=== PATIENT | male | born 1955 | race Caucasian/White ===

== ENCOUNTER 2018-10-16 11:01 | Day surgery (SDC) | payer OTHER, SELFPAY ==
[2018-10-16] VITALS (7 sets, daily range): BP systolic 113–133; BP diastolic 73–83; PULSE 73–98; RESP 12–16; TEMP 36.3–36.9; O2SAT 94–96; BMI 28.3
--- NOTE | 2018-10-16 | PATH_ITS ---
[facility] Accession Number: [id number] . 01 Material submitted: . colon - SIGMOID COLON POLYP . 02 Diagnosis: Sigmoid Colon Polyp: Tubular adenoma; negative for high-grade dysplasia. [facility]/10/17/2018 . 02 Electronically signed: . Carlita Campuzano MD, Pathologist NPI- [id number] . 01 Gross description: . SIGMOID COLON POLYP: Received in formalin are 2 fragment(s) of espinoza, soft tissue measuring 0.1 x 0.1 x 0.1 cm to 0.3 x 0.3 x 0.3 cm which is entirely submitted and submitted entirely in 1 cassette(s) /DMC /DMC . 02 Pathologist provided ICD-10: K63.5 . 02 CPT . 495121 Performed at: 01 [facility] [address] [id number] MD Surya Bernal MD Phone: [phone] Performed at: 02 [facility] [address] [place], [place] [id number] MD Albania Purdy MD Phone: [phone]
[2018-10-16] MEDS: SODIUM CHLORIDE 0.9% 1,000 ML 200 ML IV (12:00)
--- NOTE | 2018-10-16 13:04 | PM.HP.1 ---
History of Present Illness Chief complaint: [id number] COLONOSCOPY W/POSS BX Patient History Surgical History History of carpal tunnel repair Status post colonoscopy Status post colonoscopy Family History (Updated 07/03/16 @ 00:00 by Conversion Provider) Father Cancer Mother Heart disease Hypertension High cholesterol Family & Social History Family History Father Cancer Mother Heart disease Hypertension High cholesterol Meds Home Medications Medication Instructions Recorded Confirmed Type aspirin DAILY #0 07/04/16 History lisinopril [Prinivil] QDAY #0 07/04/16 History Allergies Allergy/AdvReac Type Severity Reaction Status Date / Time sulfamethoxazole Allergy Intermediate Rash Verified 10/16/18 11:37 [From ] trimethoprim [From JANRA] Allergy Intermediate Rash Verified 10/16/18 11:37 Review of Systems Review of Systems All systems reviewed & are unremarkable except as noted in HPI and below Exam Vital Signs (past 8 hours): - 10/16/18 11:39 Temperature 98.2 F Pulse Rate 98 H Respiratory Rate 16 Blood Pressure 133/80 Pulse Oximetry 95 Oxygen Delivery Method Room Air Narrative Exam Narrative: Awake alert and oriented x3, pupils reactive, heart regular rate rhythm, lungs clear, abdomen nondistended, no lower extremity swelling Assessment & Plan Assessment & Plan narrative: Colon cancer screening, colonoscopy
[2018-10-16] MEDS: MIDAZOLAM 5 MG/5 ML VIAL IV (13:29)
[2018-10-16] MEDS: fentaNYL 250 MCG/5 ML INJ IV (13:30)
--- NOTE | 2018-10-16 13:39 | PM.PREOP ---
Pre-operative Note Interval Note History & Physical reviewed/Exam performed by Physician: Yes Changes to H&P: No ASA Class (for procedural sedation): II
--- NOTE | 2018-10-16 13:40 | PM.OP.ENDO ---
Operative Date/Time/Diagnoses Date of procedure: 10/16/18 Procedure & Clinicians Study performed: Colonoscopy with cold biopsy Moderate conscious sedation was administered by the endoscopy nurse and supervised by the endoscopist. The following parameters were monitored: Oxygen saturation, heart rate, blood pressure, and response to care. Sedation: 4 mg midazolam, 100 micro g fentanyl Indications: Personal history of colon polyps. Last colonoscopy was 3 years ago Procedure Notes Procedure in detail: Prior to the procedure, history and physical was performed, and patient medications and allergies were reviewed. Preprocedure nursing history and assessment was reviewed. Patient identification and proposed procedure were verified by the physician and nurse in the procedure room. The physical status of the patient was reassessed after the procedure. After informed consent was obtained including risks, benefits, and alternatives, the scope was passed under direct vision. Throughout the procedure, the patient's blood pressure, pulse, and oxygen saturations were monitored continuously. The colonoscope was introduced through the anus and advanced to the cecum as identified by the appendiceal orifice and ileocecal valve. The patient tolerated the procedure well. Bowel prep was deemed adequate to detect polyps greater than 5 mm. HAO and perianal examinations were unremarkable. Retroflexion in the rectum revealed grade 2 internal hemorrhoids. Multiple medium mouth diverticula noted in the sigmoid colon A 3 mm sessile polyp in the sigmoid colon was resected and retrieved with a Jumbo biopsy forceps Impression: Internal hemorrhoids Sigmoid colon diverticulosis 3 mm sigmoid colon polyp removed Sedation minutes: 16 Complications: other (EBL minimal. No complications) Plan for aftercare: Follow-up pathology results Repeat colonoscopy in 5 years for screening purposes High fiber diet Resume home medications Discharge home with escort
== END 2018-10-16 14:19 | disposition home or self-care (01) ==
PROVIDERS: PCP Nurse Practitioner Family; Visit Provider Internal Medicine
PROC: 0DJD8ZZ Inspection of Lower Intestinal Tract, Via Natural or Artificial Opening Endoscopic (ICD-10-PCS; CPT 45378; principal; 2018-10-16 13:00)
DX: Z86.010 Personal history of colon polyps (principal); K57.30 Diverticulosis of large intestine without perforation or abscess without bleeding; K64.1 Second degree hemorrhoids; D12.5 Benign neoplasm of sigmoid colon
CPT/HCPCS: 45380; 88305; J2250; J3010

== ENCOUNTER 2019-01-21 09:04 | Emergency (ER) | payer OTHER, SELFPAY ==
--- NOTE | 2019-01-21 09:11 | ED.MALEGU ---
HPI - Male Genitourinary General Chief complaint: Urogenital-Male Stated complaint: KIDNEY STONE Time Seen by Provider: 01/21/19 09:05 Source: patient Mode of arrival: ambulatory Limitations: no limitations History of Present Illness HPI Narrative: Patient is a 63-year-old male here for evaluation of what he thinks is a right-sided kidney stone. He has had multiple stones in the past. Has had to have lithotripsy in the past. He states that he does not currently see a urologist on a regular basis. He has passed multiple stones in the past several weeks. He states that his current symptoms started approximately 5 days ago. Is on his right side. He states that he is in here today for both pain control and the fact that the pain has not moved from his lower back in the past 5 days which he states is abnormal from his baseline kidney stone discomfort. Not having any vomiting. No fevers. Is urinating but does notice some decreased urine output. Related Data Home Medications Medication Instructions Recorded Confirmed aspirin DAILY #0 07/04/16 lisinopril [Prinivil] QDAY #0 07/04/16 Previous Rx's Medication Instructions Recorded hydrocodone-acetaminophen [Everson] 1 tab PO Q4-6H PRN #20 tab 01/21/19 Allergies Allergy/AdvReac Type Severity Reaction Status Date / Time sulfamethoxazole Allergy Intermediate Rash Verified 10/16/18 11:37 [From ] trimethoprim [From ] Allergy Intermediate Rash Verified 10/16/18 11:37 Review of Systems Constitutional Constitutional: Denies fever(s) Cardiovascular Cardiovascular: Denies chest pain and Denies dyspnea Respiratory Respiratory: Denies dyspnea Gastrointestinal Gastrointestinal: Denies abdominal pain Genitourinary Genitourinary: Denies hematuria, Denies dysuria, Denies testicular mass, Denies testicular pain, Reports urinary frequency and Reports urinary hesitancy Musculoskeletal Musculoskeletal: Reports back pain Integumentary/Breasts Skin/Breast: Denies rash Neurologic Neurologic: Denies behavioral changes Psychiatric Psychiatric: Denies behavioral changes [facility] Medical History Multiple kidney stones (Acute) Surgical History H/O lithotripsy (Acute) History of carpal tunnel repair Status post colonoscopy Status post colonoscopy Family History Father Cancer Mother Heart disease Hypertension High cholesterol Social History lives independently: Yes Exam Initial Vital Signs Initial Vital Signs: Vital Signs Temperature 97.8 F 01/21/19 09:14 Pulse Rate 78 01/21/19 09:14 Respiratory Rate 13 01/21/19 09:14 Blood Pressure 164/80 H 01/21/19 09:14 Pulse Oximetry 98 01/21/19 09:14 Const General: cooperative, healthy appearing, comfortable, well developed, well groomed and No acute distress Orientation: alert, awake and oriented x3 HENMT Head: normal to inspection and normocephalic Resp Effort & Inspection: normal respiratory effort Auscultation: clear to auscultation bilaterally Cardio Rate: regular rate Rhythm: regular rhythm GI Inspection: non-distended Palpation: soft, No firm and No tender Back/Spine/Pelvis Back: No CVA tenderness Skin Lesions: no lesions Rashes: no rashes Neuro General: alert and awake Cognition: normal cognition Speech: speech normal Extrem General: normal to inspection and capillary refill normal Psych Appearance: grossly normal and well kempt Course Orders Ordered: ED Orders 01/21/19 09:15 Basic Metabolic Panel Stat Complete Blood Count AUTO DIFF Stat 01/21/19 09:18 CT kidney ureter bladder (KUB) Stat 01/21/19 09:35 Urine Microscopic Stat Discontinued Medications Acetaminophen (Tylenol) 650 mg PO NOW ONE Stop: 01/21/19 09:18 Last Admin: 01/21/19 09:26 Dose: 650 mg Documented by: PAUL Lidocaine HCl 7.7 ml/ Sodium (Chloride) 57.7 mls @ 346.2 mls/hr IV NOW ONE Stop: 01/21/19 09:18 Last Infusion: 01/21/19 09:50 Dose: 0 mls/hr Documented by: Admin: 01/21/19 09:35 Dose: 346.2 mls/hr Documented by: PAUL Ketorolac Tromethamine (Toradol) 30 mg IV NOW ONE Stop: 01/21/19 09:18 Last Admin: 01/21/19 09:26 Dose: 30 mg Documented by: PAUL Vital Signs Vital signs: Vital Signs - 8 hr 09/03/19 09:14 Temperature 97.8 F Pulse Rate 78 Respiratory Rate 13 Blood Pressure 164/80 H Pulse Oximetry 98 MDM - Male Genitourinary Lab Data Attestation: I reviewed the patient's lab results. Result diagrams: 01/21/19 09:15 01/21/19 09:15 Labs: Lab Results 01/21/19 01/21/19 01/21/19 Range/Units 09:15 09:15 09:35 WBC 9.0 (4.5-11.0) X10^3/uL RBC 5.00 (4.5-5.9) X10^6/uL Hgb 15.9 (13.5-17.5) g/dL Hct 45.1 (41-53) % MCV 90.1 (80-100) fL MCH 31.8 (26-34) PG MCHC 35.3 (30-36) % RDW 13.9 (11.6-14.8) % Plt Count 216 (150-400) X10^3/uL Neut % (Auto) 73.1 (50-75) % Lymph % (Auto) 18.8 L (25-40) % Sharp % (Auto) 7.0 (3-14) % Eos % (Auto) 0.5 L (2-4) % Baso % (Auto) 0.6 (0-2) % Neut # (Auto) 6500 (6820-3409) /uL Lymph # (Auto) 1700 (1534-9028) /uL Sharp # (Auto) 600 (0-900) /uL Eos # (Auto) 0 (0-450) /uL Baso # (Auto) 100 (0-100) /uL Sodium 139 (137-145) mmol/L Potassium 4.0 (3.4-5.1) mmol/L Chloride 104 (98-107) mmol/L Carbon Dioxide 26 (22-32) mmol/L BUN 13 (9-20) mg/dL Creatinine 0.50 L (0.66-1.25) mg/dL Estimated GFR > 60.0 (>60) mL/min BUN/Creatinine Ratio 26.0 H (6-22) Glucose 130 H (80-110) mg/dL Calcium 9.2 (8.4-10.2) mg/dL Urine RBC 0-1/hpf (0-5/HPF) Urine WBC 0-1/hpf (0-5/HPF) Ur Squamous Epith Cells 0-1 /hpf (0-5/HPF) Calcium Oxalate Crystal Occasional H Urine Bacteria Few (2-10) H (None) Ur Culture Indicated? Cult not indicated Urine Dip Bedside Urine Glucose Negative Bedside Urine Bilirubin - Negative Bedside Urine Ketone - Negative Urine Specific [place] 1.015 Bedside Urine Occult Blood - Negative Bedside Urine pH 6.0 Bedside Urine Protein +/- 15 Bedside Urine Urobilinogen 1+ 2mg Bedside Urine Nitrite - Negative Bedside Urine Leukocytes - Negative Esterase Imaging Data CT scan - abdomen: Radiologist's impression: [address] [address] [address] Scan Report Signed Patient: Milton Mendez JMR#: [id number] : 5Acct:[id number] Age/Sex: 63 / MDate of Service: 01/21/19 Loc: ED Accession Number: [id number] Procedure: CT kidney ureter bladder (KUB) Ordering Provider: Sanford Callahan D.O. PROCEDURE: CT KIDNEY URETER BLADDER (KUB) INDICATIONS: Eval for right-sided stone, right flank pain TECHNIQUE: Noncontrast 5 mm thick sections acquired from the diaphragms to the symphysis. 5 mm thick coronal and sagittal reformats were then performed. For radiation dose reduction, the following was used: automated exposure control, adjustment of mA and/or kV according to patient size. COMPARISON: Located Within [facility], , KUB XRAY (1 VIEW ABDOMEN), 10/13/2009, 13:03. FINDINGS: Image quality: Excellent. Lung bases: Lung bases are clear. Heart size is normal. Urinary system: Both kidneys are normal in size. No obstructive kidney stones are found but there are several 1-2 mm calculi within the collecting system of the kidneys. No hydronephrosis or perinephric fat stranding. Both ureters appear non-dilated throughout their expected courses. Bladder wall thickness is normal; but there is a 5 mm suspected calcified bladder stone seen exactly at the midline, centered on series 2 image 79.. Other solid organs: Liver is normal in size. Gallbladder appears normal. Pancreas is normal in contours. Spleen is normal in size. No adrenal nodules. Peritoneum and bowel: Unenhanced bowel loops demonstrate normal wall thickness and caliber. No free fluid or air. Nodes and vessels: No retroperitoneal or mesenteric adenopathy by size criteria. Aorta and inferior vena cava are normal in caliber. Abdominal wall: No ventral hernias. Pelvis: No free pelvic fluid. No inguinal hernias or adenopathy. Bones: No suspicious bony lesions. No vertebral body compression fractures. IMPRESSION: 1. Within the collecting system of the kidneys bilaterally there is a total of approximately 2-3 small collecting system calculi ranging in size from 1 mm to 2 mm. There is no sign of urinary tract obstruction as a result, however. 2. Within the exact midline of the bladder lumen there is a 5 mm calcification, separate from the ureteral insertions into the bladder more posteriorly. This appears to represent an intraluminal bladder calculus, chronicity uncertain. The absence of urinary tract dilatation or inflammation would argue that this does not represent a calculus that has just transit through the ureter of one of the kidneys into the bladder lumen. It may be a bladder calculus that is chronic, however. 3. Elsewhere through the abdomen and pelvis no acute disease is found or suspected. Dictated by: Alessio Ramirez M.D. on 01/21/2019 at 9:46 Approved by: Alessio Ramirez M.D. on 01/21/2019 at 9:51 MDM Narrative Medical decision making narrative: Patient reports improvement of symptoms after medications here in the emergency department. His creatinine is unremarkable. No signs urinary tract infection. CT scan does show multiple small ureteral stones with a larger bladder stone. I do suspect that these are the cause of his symptoms. I did discuss this with the patient. No indication for emergent urologic consultation. I have the patient contact his primary provider for follow-up to discuss the indications for to see urologist as an outpatient. He has nausea medication at home. He also has Flomax at home provided by his primary provider. Will send home with a short course of pain medication. He was given return precautions and follow-up instructions. He expressed understanding and agreement with plan. Discharge Plan Departure Patient Disposition: Home Clinical Impression: Renal colic on right side Instructions: DI for Kidney Stones Activity Restrictions/Additional Instructions: Take your medications as directed. Be sure to increase your fluid intake. Contact your primary provider to discuss the indications for referral to see a urologist. Return to the emergency department for any new or worsening symptoms Prescriptions: New hydrocodone-acetaminophen [Everson] 5-325 mg tablet 1 tab PO Q4-6H PRN (Reason: pain) Qty: 20 RF: 0 No Action lisinopril [Prinivil] 20 MG tablet QDAY Qty: 0 RF: 0 aspirin 81 MG tablet,chewable DAILY Qty: 0 RF: 0 Referrals: Aleida Taylor ARNP [Primary Care Provider] -
[2019-01-21 09:14] VITALS: BP 164/80; PULSE 78; RESP 13; TEMP 36.6; O2SAT 98
--- NOTE | 2019-01-21 09:18 | DI.CT.S_ITS ---
PROCEDURE: CT KIDNEY URETER BLADDER (KUB) INDICATIONS: Eval for right-sided stone, right flank pain TECHNIQUE: Noncontrast 5 mm thick sections acquired from the diaphragms to the symphysis. 5 mm thick coronal and sagittal reformats were then performed. For radiation dose reduction, the following was used: automated exposure control, adjustment of mA and/or kV according to patient size. COMPARISON: [facility], , KUB XRAY (1 VIEW ABDOMEN), 10/13/2009, 13:03. FINDINGS: Image quality: Excellent. Lung bases: Lung bases are clear. Heart size is normal. Urinary system: Both kidneys are normal in size. No obstructive kidney stones are found but there are several 1-2 mm calculi within the collecting system of the kidneys. No hydronephrosis or perinephric fat stranding. Both ureters appear non-dilated throughout their expected courses. Bladder wall thickness is normal; but there is a 5 mm suspected calcified bladder stone seen exactly at the midline, centered on series 2 image 79.. Other solid organs: Liver is normal in size. Gallbladder appears normal. Pancreas is normal in contours. Spleen is normal in size. No adrenal nodules. Peritoneum and bowel: Unenhanced bowel loops demonstrate normal wall thickness and caliber. No free fluid or air. Nodes and vessels: No retroperitoneal or mesenteric adenopathy by size criteria. Aorta and inferior vena cava are normal in caliber. Abdominal wall: No ventral hernias. Pelvis: No free pelvic fluid. No inguinal hernias or adenopathy. Bones: No suspicious bony lesions. No vertebral body compression fractures. IMPRESSION: 1. Within the collecting system of the kidneys bilaterally there is a total of approximately 2-3 small collecting system calculi ranging in size from 1 mm to 2 mm. There is no sign of urinary tract obstruction as a result, however. 2. Within the exact midline of the bladder lumen there is a 5 mm calcification, separate from the ureteral insertions into the bladder more posteriorly. This appears to represent an intraluminal bladder calculus, chronicity uncertain. The absence of urinary tract dilatation or inflammation would argue that this does not represent a calculus that has just transit through the ureter of one of the kidneys into the bladder lumen. It may be a bladder calculus that is chronic, however. 3. Elsewhere through the abdomen and pelvis no acute disease is found or suspected. Dictated by: Alessio Ramirez M.D. on 01/21/2019 at 9:46 Approved by: Alessio Ramirez M.D. on 01/21/2019 at 9:51
[2019-01-21 09:26] LABS: Add Manual Diff / Slide Review NO; Basophils Absolute Auto 100 /uL (0-100); Basophils Percent Auto 0.6 % (0-2); Eosinophils Absolute Auto 0 /uL (0-450); Eosinophils Percent Auto 0.5 % (2-4); Hematocrit 45.1 % (41-53); Hemoglobin 15.9 g/dL (13.5-17.5); Lymphocytes Absolute Auto 1700 /uL (1100-4500); Lymphocytes Percent Auto 18.8 % (25-40); Mean Corpuscular HGB Conc 35.3 % (30-36); Mean Corpuscular Hemoglobin 31.8 PG (26-34); Mean Corpuscular Volume 90.1 fL (80-100); Monocytes Absolute Auto 600 /uL (0-900); Neutrophils Absolute Auto 6500 /uL (1500-7000); Neutrophils Percent Auto 73.1 % (50-75); Platelet Count 216 X10^3/uL (150-400); Red Cell Distribution Width 13.9 % (11.6-14.8)
[2019-01-21] MEDS: KETOROLAC 60 MG/2 ML VIAL 30 MG IV (09:26)
[2019-01-21] MEDS: ACETAMINOPHEN 325 MG TABLET 650 MG PO (09:26)
[2019-01-21] MEDS: LIDOCAINE 2% IV (09:35)
[2019-01-21] MEDS: SODIUM CHLORIDE 0.9% IV (09:35)
[2019-01-21 09:36] LABS: Blood Urea Nitrogen 13 mg/dL (9-20); Calcium 9.2 mg/dL (8.4-10.2); Carbon Dioxide 26 mmol/L (22-32); Chloride 104 mmol/L (98-107); Estimated Glomerular Filt Rate > 60.0 mL/min (>60); Glucose 130 mg/dL (80-110); HEMOLYSIS 16 (0-50); Sodium 139 mmol/L (137-145)
[2019-01-21 09:53] LABS: RBC Urine 0-1/HPF (0-5/HPF); Squamous Epithelial Cell Urine 0-1 /HPF (0-5/HPF); WBC Urine 0-1/HPF (0-5/HPF)
[2019-01-21 09:54] LABS: Bacteria Urine Few (2-10); Calcium Oxalate Crystals Urine Occasional; Culture Indicated Urine Cult Not Indicated
--- NOTE | 2019-01-21 10:48 | PC.NURSE ---
pt c/o left flank pain started 2 days ago. states has long history of kidney stones, todays pain is worse, it's not moving, and the kidney stones have been more frequent.
[2019-01-21 10:49] VITALS: BP 159/81; PULSE 67; RESP 18; O2SAT 100
== END 2019-01-21 10:50 | disposition home or self-care (01) ==
PROVIDERS: Emergency Provider Emergency Medicine; PCP Nurse Practitioner Family
DX: N23 Unspecified renal colic (principal)
CPT/HCPCS: 36591; 74176; 80048; 81003; 81015; 85025; 96374; 96375; 99283; 99284; J1885

== ENCOUNTER → 2019-02-17 09:25 | Outpatient (CLI) | payer OTHER, SELFPAY ==
--- NOTE | 2019-02-17 | DI.ECHO.S_ITS ---
[facility] +---------+ : : [address] [place] : : : : [id number] : : : : Phone: [phone]---------+ Echocardiogram Report + + :Name: SHIKHA LEONARDO Study Date: 02/17/2019 Height: 73 in : :[facility] Weight: 229 lb : : Gender: Male BSA: 2.3 m2 : :: 1955 Age: 63 yrs BP: 118/58 mmHg: :Reason For Study: Abnormal ECG : : Performed By: Afau Spencer : :Referring: ARPITA JUNIOR : + + Interpretation Summary The left ventricle is normal in size. The ejection fraction is estimated to be 60-65%. There has been no significant change in LV EF since the previous study. There is apical akinesis. There is apical septal wall akinesis. Wall motion abnormalities are new. The aortic valve is mildly calcified. The aortic valve is trileaflet. There is mildly reduced leaflet mobility. The peak aortic velocity is 2.5 m/sec. The peak aortic velocity on the previous exam was 2.0 m/sec. The calculated aortic valve area is 1.6 cm2. There is mild aortic stenosis. The ascending aorta is mild-moderately enlarged. 4.2 cm in diameter. There has been no significant change since the previous study. Procedure: A two-dimensional transthoracic echocardiogram with color flow and Doppler was performed. The study quality was technically adequate. Comparison is made with the echocardiogram of 07-12-17. The heart rate ranged between 95-104 bpm during the study. The patient was in normal sinus rhythm during the exam. Left Ventricle: The left ventricle is normal in size. There is normal left ventricular wall thickness. There is no thrombus. The ejection fraction is estimated to be 60-65%. There has been no significant change since the previous study. There is apical septal wall akinesis. There is apical akinesis. MV E/A: 0.68 Med Peak E' Jovan: 5.5 cm/sec E/E' med: 17.9. Right Ventricle: The right ventricle grossly appears normal in size with probable normal systolic function. Atria: The left atrial size is normal. Both atria have remained unchanged in size since the prior echo exam. Right atrial size is normal. A prominent eustachian valve is noted. The interatrial septum is intact with no evidence for an atrial septal defect. Mitral Valve: The mitral valve leaflets appear mildly thickened, but open well. There is mild mitral annular calcification. There is trace mitral regurgitation. Aortic Valve: The aortic valve is mildly calcified. The aortic valve is trileaflet. There is mildly reduced leaflet mobility. The calculated aortic valve area is 1.6 cm2. The peak aortic velocity is 2.5 m/sec. The peak aortic velocity on the previous exam was 2.0 m/sec. The aortic valve mean gradient is 13 mmHg. Severity ratio is 0.42. There is mild aortic stenosis. There is trace aortic regurgitation. Tricuspid Valve: The tricuspid valve leaflets are thin and pliable. There is trace tricuspid regurgitation. The right ventricular systolic pressure is estimated to be at least 19 mmHg based on an estimated right atrial pressure of 3 mm Hg. Pulmonic Valve: The pulmonic valve is not well seen, but is grossly normal. There is no pulmonic valvular regurgitation. Great Vessels: The aortic root is mildly dilated. The ascending aorta is mild-moderately enlarged. There has been no significant change since the previous study. This is unchanged compared to the previous study. The IVC is of normal diameter and collapses greater than 50% with a sniff. This suggests a low right atrial pressure of 3 mm Hg. Pericardium/ Pleura There is no pericardial effusion. There is no pleural effusion. MMode/2D Measurements & Calculations LVIDd: 4.1 cm LVOT diam: 2.2 cm LVIDs: 3.0 cm Ao root diam: 3.9 cm FS: 28.1 % Aortic Jxn: 3.2 cm EPSS: 0.66 cm asc Aorta Diam: 4.2 cm IVSd: 0.98 cm LVPWd: 0.95 cm LV hernandez. diameter/BSA (cm/m^2): 1.8 LV sys. diameter/BSA (cm/m^2): 1.3 LA dimension: 3.8 cm RA long axis: 4.8 cm LA A2 area: 20.4 cm2 RA area: 15.1 cm2 LA A4 area: 18.6 cm2 RA vol: 39.8 ml LA length (vol): 5.1 cm RA : 17.5 ml/m2 LA vol: 63.8 ml IVC diam: 1.00 cm LA vol index: 28.0 ml/m2 RVDd major: 5.4 cm RVD1 (basal): 3.4 cm RVD2 (mid): 2.8 cm Doppler Measurements & Calculations Ao V2 max: 247.2 cm/sec LVOT Max Jovan: 101.2 cm/sec Ao V2 mean: 173.2 cm/sec LV V1 max P.1 mmHg Ao max P.4 mmHg LV V1 VTI: 18.7 cm Ao mean P.2 mmHg JAYNE(I,D): 1.6 cm2 Ao V2 VTI: 45.1 cm JAYNE(V,D): 1.6 cm2 sev ratio: 0.42 JAYNE indexed to BSA (cm^2/m^2): 0.72 MV E max jovan: 97.9 cm/sec TR max jovan: 197.0 cm/sec MV A max jovan: 144.5 cm/sec TR max P.5 mmHg MV E/A: 0.68 PA V2 max: 130.5 cm/sec Med Peak E' Jovan: 5.5 cm/sec PA V2 mean: 98.2 cm/sec E/E' med: 17.9 PA mean P.2 mmHg Lat Peak E' Jovan: 9.6 cm/sec PA Accel Time: 0.15 sec E/E' lat: 10.2 E/e' average: 14.1 MV dec time: 0.31 sec MV P1/2t: 89.6 msec MV P1/2t max jovan: 97.4 cm/sec SV(LVOT): 74.0 ml MVA(P1/2t): 2.5 cm2 Reading Physician:06:07 PM
--- NOTE | 2019-02-17 | DI.NM.S_ITS ---
PROCEDURE: NM STEPAN PERF SPECT REST & STR Rest and exercise myocardial perfusion SPECT with gated imaging and ejection fraction RADIOPHARMACEUTICAL: 12.4 mCi Tc-99m sestamibi IV at rest and 26.2 mCi Tc-99m sestamibi IV at peak exercise. A one day-protocol was performed. INDICATIONS: Abnormal electrocardiogram [ECG] [EKG] TECHNIQUE: Radiopharmaceutical was injected at peak stress test, and also at rest. SPECT images were obtained. SPECT myocardial perfusion images were displayed in short axis, horizontal long axis, and vertical long axis views. Gated images were reviewed using INXPO software. COMPARISON: None. CARDIAC STRESS: A standard Louie treadmill exercise tolerance test was performed by the patient under the supervision of an attending staff. The patient exercised for 5 minutes and 15 seconds; functional aerobic impairment (BAMBI) is +28%. Hemodynamic data: There is an exagerated heart rate response to exercise stress. Patient achieved 115% of maximum predicted heart rate at peak exercise. Borderline hypertensive response to exercise (rest BP 112/70, max BP 200/84mmHg). Symptoms: Patient denied chest pain during exercise. Significant dyspnea with exercise. EKG: Resting EKG shows sinus rhythm with Q waves in V1-V3 and mild ST depressions diffusely. With exercise, there were 1-2mm horizontal to downsloping ST changes in the inferior and anterolateral leads. FINDINGS: Raw data: There is good myocardial labeling by radiotracer. No significant motion artifacts. Vrgb-ui-fflea ratio is 0.37 (normal is less than 0.38 for sestamibi tracer, and less than 0.50 for thallium tracer). Left ventricle function: Gated images akinesis of the entire apical cap extending to the distal septum. No transient ischemic dilation; TID is 1.07 (normal less than 1.3). The left ventricle resting end-diastolic volume is 162 mL. Left ventricle stress ejection fraction is 64%; normal values are above 45%. Myocardial perfusion: There is large fixed defect at the apical cap with reversible defect in the distal anterior wall consistent with prior apical infarct and significant ischemia in the distal anterior wall. SSS 23, SRS 16. Prone images confim that the perfusion defects are true defects. IMPRESSION: Abnormal treadmill nuclear stress test consistent with large apical infarct and significant ischemia in the distal anterior wall. 1) There is large fixed defect at the apical cap with reversible defect in the distal anterior wall consistent with prior apical infarct and significant ischemia in the distal anterior wall. SSS 23, SRS 16. Prone images confim that the perfusion defects are true defects. 2) Enlarged left ventricle with normal systolic function (EF post stress 64%). The entire apical cap extending to the distal septum are akinetic. 3) ECG suggestive of ischemia and prior anteroseptal infarct. Resting EKG shows sinus rhythm with Q waves in V1-V3 and mild ST depressions diffusely. With exercise, there were 1-2mm horizontal to downsloping ST changes in the inferior and anterolateral leads. 4) Significant dyspnea with exercise. No chest pain during the study. 5) Reduced exercise tolerance (7.0 METs, BAMBI +28%). Target heart rate achieved. Exagerated heart rate response to exercise stress as 115% of maximum predicted heart rate reached. 6) Borderline hypertensive response to exercise (rest BP 112/70, max BP 200/84mmHg). 7) No prior nuclear stress test available for comparison. Dictated by: Teena Kevin MD on 02/17/2019 at 16:50 Approved by: Teena Kevin MD on 02/17/2019 at 16:58
--- NOTE | 2019-02-17 14:45 | PM.TREADMILL ---
Cardiac Stress Test Report Referral & Results Date Patient Seen: 02/17/19 Requesting provider: Raul Yates Indication: Abnormal ECG Rest ECG: Poor R-wave progression Procedure Note: Today following both written and verbal informed consent the patient was exercised according to a standard Louie protocol patient went for a total of 5 minutes 15 seconds achieving a maximum heart rate of 179 maximum systolic blood pressure of 200. This is approximately 7.0 METS. Exercise was terminated at this point because of severe dyspnea. Patient was also given Cardiolite through a previously started Hep-Lock IV by the diagnostic imaging staff approximately 1 minute prior to the cessation of exercise. Patient's oxygen saturation remained normal at 98% throughout With exercise his quickly tachycardic and quickly hypertensive With exercise patient developed up to bowel mm plus of downsloping ST segment depression in leads II, III, and aVf, as well as some altered ST segments in lead V6. These were all seen previously on prior stress test per Cardiology notes Functional aerobic impairment rates about 28% of the sedentary scale Impression: Ischemic changes as above Limited exercise capacity as above Quickly tachycardic and hypertensive as above Please see perfusion imaging report as well Please note: Actual ECG tracings can be found in the PACS system.
== END ==
PROVIDERS: PCP Nurse Practitioner Family; Visit Provider Internal Medicine Cardiovascular Disease
DX: I35.0 Nonrheumatic aortic (valve) stenosis (principal); R94.31 Abnormal electrocardiogram [ECG] [EKG]; I77.89 Other specified disorders of arteries and arterioles; R06.09 Other forms of dyspnea; R00.0 Tachycardia, unspecified; I10 Essential (primary) hypertension
CPT/HCPCS: 78452; 93016; 93017; 93018; 93306; A9502

== ENCOUNTER → 2020-12-27 12:13 | Outpatient (CLI) | payer MEDICARE, OTHER, SELFPAY ==
--- NOTE | 2020-12-27 | DI.ECHO.S_ITS ---
[place] [facility]---------+ [facility] +---------+ : : [address] : : : : [id number] : : : : Phone: [phone] : [phone]---------+ Echocardiogram Report + + :Name: SHIKHA LEONARDO Study Date: 12/27/2020 Height: 73 in : :[facility] : Weight: 238 lb : : Gender: Male BSA: 2.3 m2 : :: 1955 Age: 65 yrs BP: 154/84 mmHg: :Reason For Study: CAD : :Ordering Physician: Arpita : :Bernarda Junior Performed By: Twin Marie : :Referring: ARPITA JUNIOR : + + Interpretation Summary The left ventricle is normal in size and wall thickness. The ejection fraction is estimated to be 60-65%. The right ventricle is normal in size and function. The aortic valve is mildly calcified. There is mildly reduced leaflet mobility. There is no hemodynamically significant valvular aortic stenosis. There is mild to moderate aortic regurgitation. Compared to the prior echo study, there has been an increase in the severity of aortic regurgitation. The ascending aorta is mild-moderately enlarged. 4.2 cm in diameter. This is unchanged compared to the previous study. The IVC is of normal diameter and collapses greater than 50% with a sniff. This suggests a low right atrial pressure of 3 mm Hg. Procedure: A two-dimensional transthoracic echocardiogram with color flow and Doppler was performed. The study quality was technically adequate. Comparison is made with the echocardiogram of 02/17/2019. The patient was in normal sinus rhythm during the exam. Left Ventricle: The left ventricle is normal in size and wall thickness. There is no thrombus. Left ventricular systolic function is normal. The ejection fraction is estimated to be 60-65%. There is apical septal wall akinesis. There is apical akinesis. Compared to the prior exam, the left ventricular wall motion has not changed. MV E/A: 0.98 Med Peak E' Jovan: 6.6 cm/sec E/E' med: 18.7. Right Ventricle: The right ventricle is normal in size and function. Atria: Both atria are normal in size. There is no Doppler evidence for an interatrial shunt. Mitral Valve: There is mild mitral annular calcification. The mitral valve leaflets are mildly calcified. No significant mitral valve stenosis. There is trace mitral regurgitation. Aortic Valve: There is mild aortic valve sclerosis. The aortic valve is mildly calcified. There is mildly reduced leaflet mobility. There is no hemodynamically significant valvular aortic stenosis. The peak aortic velocity is 2.01 m/sec. The peak aortic velocity on the previous exam was 2.47 m/sec. There is mild to moderate aortic regurgitation. Compared to the prior echo study, there has been an increase in the severity of aortic regurgitation. Tricuspid Valve: The tricuspid valve is normal in structure and function. Pulmonary artery pressures cannot be estimated because of the lack of a measurable TR jet velocity but the IVC suggests a CVP of around 3 mmHg. There is trace tricuspid regurgitation. Pulmonic Valve: The pulmonic valve is not well visualized. There is no pulmonic valvular regurgitation. Great Vessels: The aortic root is normal size. The ascending aorta is mild- moderately enlarged. This is unchanged compared to the previous study. The IVC is of normal diameter and collapses greater than 50% with a sniff. This suggests a low right atrial pressure of 3 mm Hg. Pericardium/ Pleura There is no pericardial effusion. There is no pleural effusion. MMode/2D Measurements & Calculations LVIDd: 4.9 cm LVOT diam: 2.3 cm LVIDs: 3.3 cm Ao root diam: 3.5 cm FS: 32.7 % asc Aorta Diam: 4.2 cm IVSd: 1.0 cm LVPWd: 0.90 cm LV hernandez. diameter/BSA (cm/m^2): 2.1 LV sys. diameter/BSA (cm/m^2): 1.4 LA dimension: 3.2 cm RA long axis: 4.8 cm LA A2 area: 15.9 cm2 LA A4 area: 15.8 cm2 LA length (vol): 5.3 cm LA vol: 39.9 ml LA vol index: 17.2 ml/m2 LVLs ap4: 8.1 cm TAPSE_phl: 1.9 cm Doppler Measurements & Calculations Ao V2 max: 201.0 cm/sec LVOT Max Jovan: 134.0 cm/sec Ao V2 mean: 137.0 cm/sec LV V1 max P.2 mmHg Ao max P.0 mmHg LV V1 VTI: 30.1 cm Ao mean P.0 mmHg JAYNE(I,D): 3.2 cm2 Ao V2 VTI: 38.7 cm JAYNE(V,D): 2.8 cm2 sev ratio: 0.78 JAYNE indexed to BSA (cm^2/m^2): 1.4 AI P1/2t: 506.5 msec AI dec slope: 229.0 cm/sec2 MV E max jovan: 123.0 cm/sec PA V2 max: 109.0 cm/sec MV A max jovan: 125.0 cm/sec PA V2 mean: 85.1 cm/sec MV E/A: 0.98 PA mean P.0 mmHg Med Peak E' Jovan: 6.6 cm/sec PA pr(Accel): 45.7 mmHg E/E' med: 18.7 Lat Peak E' Jovan: 7.8 cm/sec E/E' lat: 15.7 E/e' average: 17.2 MV dec time: 0.28 sec SV(LVOT): 125.1 ml AV P1/2t-pr_phl: 506.0 msec AV VR_phl: 0.67 JAYNE(VTI)/BSA_phl: 1.4 MV P1/2t-pr_phl: 83.0 msec Reading Physician:05:45 PM
== END ==
PROVIDERS: PCP Family Medicine; Referring Provider Internal Medicine Cardiovascular Disease; Visit Provider Internal Medicine Cardiovascular Disease
DX: I35.1 Nonrheumatic aortic (valve) insufficiency (principal); I25.10 Atherosclerotic heart disease of native coronary artery without angina pectoris; I77.810 Thoracic aortic ectasia; Z95.5 Presence of coronary angioplasty implant and graft
CPT/HCPCS: 93306

== ENCOUNTER → 2021-04-13 13:17 | Outpatient (CLI) | payer OTHER, MEDICARE, SELFPAY ==
--- NOTE | 2021-04-13 | DI.ECHO.S_ITS ---
[place] +---------+ [facility] +---------+ : : [address] : [address] : [address] : : : : [id number] : : : : Phone: [phone] +---------+ Echocardiogram Report + + :Name: SHIKHA LEONARDO Study Date: 04/13/2021 Height: 73 in : :[facility] ReadingLocation: Weight: 219 lb : : Gender: Male BSA: 2.2 m2 : :: 1955 Age: 65 yrs BP: 138/84 mmHg: :Reason For Study: HEART MURMUR, HYPERTENSION : :Ordering Physician: GERARDO, : :SURYA Performed By: Marisa Lara : :Referring: SURYA CARRILLO : + + Interpretation Summary The left ventricle is normal in size. The ejection fraction is estimated to be 65-70%. Compared to the prior exam, the apical wall motion abnormality is improved. The right ventricle is normal in size and function. There is mild to moderate aortic regurgitation. Compared to the prior echo study, there has been no change in the severity of aortic regurgitation. The ascending aorta is moderately enlarged. 4.3 cm in diameter. Previously 4.2 cm in diameter. The IVC is of normal diameter and collapses greater than 50% with a sniff. This suggests a low right atrial pressure of 3 mm Hg. Procedure: A two-dimensional transthoracic echocardiogram with color flow and Doppler was performed. The study quality was technically adequate. Comparison is made with the echocardiogram of 12/27/2020. The patient was in sinus rhythm with heart rates between 76-84 bpm during the exam. Left Ventricle: The left ventricle is normal in size. There is mild concentric left ventricular hypertrophy. There is no thrombus. The ejection fraction is estimated to be 65-70%. There are no focal wall motion abnormalities. Compared to the prior exam, the apical wall motion abnormality is improved. MV E/A: 0.83 Med Peak E' Jovan: 5.1 cm/sec E/E' med: 19.8. Right Ventricle: The right ventricle is normal in size and function. Atria: The left atrium is mildly dilated. The left atrium has mildly increased in size since the prior echo exam. Right atrial size is normal. There is no Doppler evidence for an interatrial shunt. Mitral Valve: There is mild to moderate mitral annular calcification. The mitral valve leaflets are mildly calcified. There is no mitral valve stenosis. There is trace mitral regurgitation. Aortic Valve: The aortic valve is mildly calcified. There is mildly reduced leaflet mobility. There is mild aortic valve sclerosis. The aortic valve is trileaflet. There is no aortic valve stenosis. There is mild to moderate aortic regurgitation. Compared to the prior echo study, there has been no change in the severity of aortic regurgitation. Tricuspid Valve: The tricuspid valve is normal in structure and function. There is trace tricuspid regurgitation. Pulmonary artery pressures cannot be estimated because of the lack of a measurable TR jet velocity but the IVC suggests a CVP of around 3 mmHg. Pulmonic Valve: The pulmonic valve is not well seen, but is grossly normal. There is no pulmonic valvular regurgitation. Great Vessels: The aortic root is normal size. The ascending aorta is moderately enlarged. Mild atherosclerotic plaque(s) in the aortic arch. The IVC is of normal diameter and collapses greater than 50% with a sniff. This suggests a low right atrial pressure of 3 mm Hg. Pericardium/ Pleura There is no pericardial effusion. There is no pleural effusion. MMode/2D Measurements & Calculations LVIDd: 4.6 cm LVOT diam: 2.3 cm LVIDs: 3.1 cm Ao root diam: 3.7 cm FS: 31.8 % asc Aorta Diam: 3.9 cm IVSd: 1.2 cm Ao Arch Diam (Prox Trans): 2.4 cm LVPWd: 1.2 cm LV hernandez. diameter/BSA (cm/m^2): 2.0 LV sys. diameter/BSA (cm/m^2): 1.4 LA A2 area: 24.8 cm2 RA long axis: 5.4 cm LA A4 area: 21.8 cm2 RA area: 18.2 cm2 LA length (vol): 5.5 cm RA vol: 51.8 ml LA vol: 84.3 ml RA : 23.2 ml/m2 LA vol index: 37.7 ml/m2 IVC diam: 1.7 cm RVD1 (basal): 3.5 cm TAPSE: 2.2 cm Doppler Measurements & Calculations Ao V2 max: 212.9 cm/sec LVOT Max Jovan: 130.6 cm/sec Ao V2 mean: 149.2 cm/sec LV V1 max P.8 mmHg Ao max P.2 mmHg LV V1 VTI: 28.1 cm Ao mean P.9 mmHg JAYNE(I,D): 2.9 cm2 Ao V2 VTI: 40.7 cm JAYNE(V,D): 2.6 cm2 sev ratio: 0.69 JAYNE indexed to BSA (cm^2/m^2): 1.3 AI P1/2t: 551.3 msec AI dec slope: 209.1 cm/sec2 MV E max jovan: 101.4 cm/sec PA V2 max: 119.9 cm/sec MV A max jovan: 122.5 cm/sec PA V2 mean: 84.4 cm/sec MV E/A: 0.83 PA mean P.1 mmHg Med Peak E' Jovan: 5.1 cm/sec PA pr(Accel): 37.9 mmHg E/E' med: 19.8 Lat Peak E' Jovan: 7.0 cm/sec E/E' lat: 14.6 E/e' average: 17.2 MV dec time: 0.30 sec MVA(VTI): 3.1 cm2 MV V2 mean: 72.5 cm/sec SV(LVOT): 118.5 ml MV mean P.5 mmHg MV V2 VTI: 38.1 cm Reading Physician:04:26 PM
== END ==
PROVIDERS: PCP Family Medicine; Referring Provider Orthopaedic Surgery; Visit Provider Orthopaedic Surgery
DX: I35.1 Nonrheumatic aortic (valve) insufficiency (principal); R01.1 Cardiac murmur, unspecified; I10 Essential (primary) hypertension; I70.0 Atherosclerosis of aorta; I77.89 Other specified disorders of arteries and arterioles
CPT/HCPCS: 93306

== ENCOUNTER → 2024-01-02 15:12 | Outpatient (CLI) | payer MEDICARE, OTHER, SELFPAY | PROVIDERS: PCP Family Medicine; Referring Provider Nurse Practitioner; Visit Provider Nurse Practitioner | DX: E78.5 Hyperlipidemia, unspecified (principal) | CPT/HCPCS: 36415; 80061; 83704 ==

== ENCOUNTER → 2024-10-16 08:36 | Outpatient (CLI) | payer MEDICARE, OTHER, SELFPAY ==
[2024-10-16 10:30] LABS: Alanine Aminotransferase 31 IU/L (<50); Albumin 4.1 g/dL (3.5-5.0); Albumin Globulin Ratio 1.7 (1.0-2.8); Alkaline Phosphatase 73 U/L (38-126); Aspartate Aminotransferase 28 IU/L (17-59); BUN Creatinine Ratio 15.7 (6-22); Bilirubin Total 0.8 mg/dL (0.2-1.3); Blood Urea Nitrogen 8 mg/dL (9-20); Calcium 8.9 mg/dL (8.4-10.2); Carbon Dioxide 22 mmol/L (22-32); Chloride 102 mmol/L (98-107); Cholesterol 91 mg/dL (140-199); Estimated Glomerular Filt Rate > 60 mL/min (>60); Globulin 2.4 g/dL (1.7-4.1); Glucose 258 mg/dL (70-99); HDL Cholesterol 32 mg/dL (40-60); HEMOLYSIS < 15 (0-50); LDL Cholesterol Calculated 42 mg/dL (<100); Potassium 4.3 mmol/L (3.4-5.1); Sodium 134 mmol/L (137-145); Total Protein 6.5 g/dL (6.3-8.2); Triglycerides 87 mg/dL (35-150)
[2024-10-19 11:38] LABS: Cholesterol, Total 93 mg/dL (100-199); HDL-Cholesterol 31 mg/dL (>39); HDL-Particle (Total) 23.1 umol/L (>=30.5); LDL Particle 783 nmol/L (<1000); LDL-Cholsterol 45 mg/dL (0-99); LP-IR Score 63 (<=45); Small LDL- Particle 474 nmol/L (<=527); Triglycerides 86 mg/dL (0-149)
== END ==
PROVIDERS: PCP Family Medicine; Referring Provider Nurse Practitioner; Visit Provider Nurse Practitioner
DX: E78.5 Hyperlipidemia, unspecified (principal); I10 Essential (primary) hypertension
CPT/HCPCS: 36415; 80053; 80061; 83704

== ENCOUNTER → 2024-10-16 10:26 | Outpatient (CLI) | payer MEDICARE, OTHER, SELFPAY ==
--- NOTE | 2024-10-16 10:29 | DI.ECHO.S_ITS ---
[place] +---------+ [facility] : : [address] : : [address] : : [phone] : : Phone: [phone] Echocardiogram Report + + :Name: SHIKHA LEONARDO Study Date: 10/16/2024 Height: 73 in : :[facility] ReadingLocation: Weight: 212 lb : : Gender: Male BSA: 2.2 m2 : :: 1955 Age: 69 yrs BP: 133/79 mmHg: :Reason For Study: AORITC VALVE STENOSIS : :Ordering Physician: SHAMIR, : :KITA Rodriguez Performed By: Marisa Lara : :Referring: KITA BARKSDALE W : + + Interpretation Summary The left ventricle is normal in size and wall thickness. Previous LVEF 55 to 60%. 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 In this study LVEF 65 to 70%. Distal inferior wall and inferior septum appears to be hypokinetic however rest of the segments showed hypercontractility. No obvious aneurysm seen. Distal anterior wall and apex has preserved contractility. The right ventricle is normal in size and function. The aortic valve is moderately calcified. There is mildly reduced leaflet mobility. The peak aortic velocity is 2.3 m/sec. The aortic valve mean gradient is 12 mmHg. The peak aortic velocity on the previous exam was 1.89 m/sec. There is mild aortic stenosis. Moderate aortic regurgitation. Previously mild to moderate aortic regurgitation. There is mild tricuspid regurgitation. The right ventricular systolic pressure is estimated to be at least 29 mmHg based on an estimated right atrial pressure of 3 mm Hg. The ascending aorta is mildly enlarged. 4.1 cm in diameter. Previously 4.2 cm. Procedure: A two-dimensional transthoracic echocardiogram with color flow and Doppler was performed. The study quality was technically adequate. Comparison is made with the echocardiogram of 06/04/2023. The patient was in sinus rhythm with heart rates between 69-88 bpm during the exam. Left Ventricle: The left ventricle is normal in size and wall thickness. There is no thrombus. A false chord is noted (normal variant). The ejection fraction is estimated to be 65-70%. Previous LVEF 55 to 60%. 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 In this study LVEF 65 to 70%. Distal inferior wall and inferior septum appears to be hypokinetic however rest of the segments showed hypercontractility. No obvious aneurysm seen. Distal anterior wall and apex has preserved contractility. Diastolic parameters suggest a relaxation abnormality of the left ventricle, consistent with probable normal filling pressures. Right Ventricle: The right ventricle is normal in size and function. Atria: The left atrial size is normal. The left atrium is not well visualized. Right atrial size is normal. A prominent eustachian valve is noted. There is no Doppler evidence for an interatrial shunt. Mitral Valve: There is mild to moderate mitral annular calcification. The mitral valve mean gradient is 3.1 mmHg. No significant mitral valve stenosis. There is mild mitral regurgitation. Aortic Valve: The aortic valve is moderately calcified. The aortic valve is trileaflet. There is mildly reduced leaflet mobility. There is mild aortic stenosis. The peak aortic velocity is 2.3 m/sec. The aortic valve mean gradient is 12 mmHg. The calculated aortic valve area is 1.6 cm2. The peak aortic velocity on the previous exam was 1.89 m/sec. There is moderate aortic regurgitation. Tricuspid Valve: The tricuspid valve is normal. There is mild tricuspid regurgitation. The right ventricular systolic pressure is estimated to be at least 29 mmHg based on an estimated right atrial pressure of 3 mm Hg. Pulmonic Valve: The pulmonic valve is not well visualized. There is no pulmonic valvular regurgitation. Great Vessels: The aortic root is normal size. The ascending aorta is mildly enlarged. The IVC is of normal diameter and collapses greater than 50% with a sniff. This suggests a low right atrial pressure of 3 mm Hg. Pericardium/ Pleura There is no pericardial effusion. There is no pleural effusion. MMode/2D Measurements & Calculations LVIDd: 4.8 cm LVOT diam: 2.0 cm LVIDs: 2.9 cm Ao root diam: 3.6 cm FS: 39.1 % asc Aorta Diam: 4.1 cm IVSd: 1.00 cm Ao Arch Diam (Prox Trans): 2.4 cm LVPWd: 1.1 cm LV hernandez. diameter/BSA (cm/m^2): 2.2 LV sys. diameter/BSA (cm/m^2): 1.3 LA A2 area: 20.3 cm2 RA long axis: 5.4 cm LA A4 area: 18.8 cm2 RA area: 16.5 cm2 LA length (vol): 5.0 cm RA vol: 42.8 ml LA vol: 64.1 ml RA : 19.4 ml/m2 LA vol index: 29.1 ml/m2 IVC diam: 1.4 cm RVD1 (basal): 3.5 cm RVD2 (mid): 3.1 cm TAPSE: 2.1 cm Doppler Measurements & Calculations Ao V2 max: 231.2 cm/sec LVOT Max Jovan: 117.9 cm/sec Ao V2 mean: 165.8 cm/sec LV V1 max P.6 mmHg Ao max P.4 mmHg LV V1 VTI: 24.0 cm Ao mean P.0 mmHg JAYNE(I,D): 1.6 cm2 Ao V2 VTI: 45.5 cm JAYNE(V,D): 1.6 cm2 sev ratio: 0.53 JAYNE indexed to BSA (cm^2/m^2): 0.73 AI P1/2t: 538.9 msec AI dec slope: 210.9 cm/sec2 MV E max jovan: 97.3 cm/sec TR max jovan: 253.1 cm/sec MV A max jovan: 126.8 cm/sec TR max P.6 mmHg MV E/A: 0.77 PA V2 max: 122.8 cm/sec Med Peak E' Jovan: 6.6 cm/sec PA V2 mean: 83.0 cm/sec E/E' med: 14.8 PA mean P.1 mmHg Lat Peak E' Jovan: 8.3 cm/sec E/E' lat: 11.7 E/e' average: 13.2 MV dec time: 0.24 sec MVA(VTI): 2.0 cm2 MV V2 mean: 80.9 cm/sec SV(LVOT): 73.4 ml MV mean P.1 mmHg MV V2 VTI: 36.8 cm Reading Physician:04:44 PM
== END ==
PROVIDERS: PCP Family Medicine; Referring Provider Nurse Practitioner; Visit Provider Nurse Practitioner
DX: I35.0 Nonrheumatic aortic (valve) stenosis (principal); E78.5 Hyperlipidemia, unspecified; I10 Essential (primary) hypertension; I70.0 Atherosclerosis of aorta; I35.1 Nonrheumatic aortic (valve) insufficiency; I07.1 Rheumatic tricuspid insufficiency; I51.7 Cardiomegaly
CPT/HCPCS: 36415; 80053; 80061; 83704; 93306